=== PATIENT | female | born 1950 | race Two or more races ===

== ENCOUNTER 2019-11-22 09:40 | Outpatient (CLI) | payer MEDICARE, MEDICAID ==
[~2019-11-22] VITALS: Ht 162.6 cm; Wt 63.0 kg
[2019-11-22 14:59] VITALS: BP 100/59
[2019-11-22] MEDS ORDERED: SIMETHICONE180 MG PO (14:59)
[2019-11-22] MEDS ORDERED: FAMOTIDINE20 MG ORAL (14:59)
[2019-11-22] MEDS ORDERED: LEVSIN-SL0.125 MG SL (14:59)
[2019-11-22] MEDS ORDERED: HYOSCYAMINE0.125 M2 PO (14:59)
[2019-11-22] MEDS ORDERED: CARAFATE1 G1 ORAL (14:59)
--- NOTE | 2019-11-23 15:45 | Consultation ---
DATE OF CONSULTATION: 11/23/2019 CONSULTING PHYSICIAN: Italo Castaneda M.D. CHIEF COMPLAINT: Abdominal pain. HISTORY OF PRESENT ILLNESS: This is a very pleasant 68-year-old woman without any significant past medical history, complained of some abdominal pain, epigastric; chronic GERD; constipation; nausea; bloating, who was referred to us for evaluation of the abdominal pain, GERD, constipation, nausea, bloating. PAST MEDICAL HISTORY: 1. GERD. 2. History of colonic polyp. PAST SURGICAL HISTORY: Appendectomy. MEDICATIONS: Please see medication reconciliation list. FAMILY HISTORY: No family history of GI malignancies. SOCIAL HISTORY: The patient denies any tobacco, alcohol, or drug abuse. ALLERGIES: No known allergies. REVIEW OF SYSTEMS: A 10-point review of systems was performed and positive for epigastric abdominal pain, chronic GERD, chronic constipation, nausea, and bloating. PHYSICAL EXAMINATION: VITAL SIGNS: Temperature 97.8, blood pressure is 110/59, pulse is 77, respirations 20. HEENT: Normocephalic and atraumatic. Sclerae anicteric. NECK: Supple. No evidence of obvious lymphadenopathy. CARDIOVASCULAR: Regular rate and rhythm. Plus S1 and S2. LUNGS: Clear to auscultation bilaterally. ABDOMEN: Positive bowel sounds. Soft and nontender. No rebound. No guarding. No peritoneal sign. EXTREMITIES: No cyanosis, no clubbing, no edema ASSESSMENT AND PLAN: This is a 68-year-old female with epigastric abdominal pain, constipation, GERD, nausea, bloating. The patient needs endoscopy and colonoscopy for evaluation of those. Possibly needs a followup CT if the above studies are nondiagnostic. The patient also might have some component of SIBO given the gas, bloating, and abdominal distension. The patient also needs to be treated for chronic constipation. We will plan to do endoscopy and colonoscopy first and the patient to come back to office for followup for the rest of her symptoms. I want to thank, Dr. Rachel for this kind referral. Italo Castaneda M.D. DR: DHRUV JOB#: [id number] CC: Dr. Rachel
== END 2019-11-22 11:40 | disposition home or self-care (01) ==
LOC: PAN 09:40
DX: R10.9 Unspecified abdominal pain (principal); K21.9 Gastro-esophageal reflux disease without esophagitis; Z86.010 Personal history of colon polyps; Z90.89 Acquired absence of other organs; K59.09 Other constipation; R14.0 Abdominal distension (gaseous); R11.0 Nausea
CPT/HCPCS: G0463

== ENCOUNTER 2019-12-02 09:45 | Day surgery (SDC) | payer MEDICARE, MEDICAID ==
[2019-12-02] VITALS (9 sets, daily range): BP systolic 94–123; BP diastolic 45–69
[~2019-12-02] VITALS: Ht 162.6 cm; Wt 61.2 kg
[~2019-12-02 09:45] MED LIST: CARAFATE1 G1 ORAL; FAMOTIDINE20 MG ORAL; HYOSCYAMINE0.125 M2 PO; LEVSIN-SL0.125 MG SL; LR 1000ml 1,000 ML IVLG SCH; SIMETHICONE180 MG PO
[2019-12-02] MEDS ORDERED: Midazolam 2mg/2ml Inj ONE (09:46)
[2019-12-02] MEDS ORDERED: fentaNYL 100 mcg/2 mL IV ONE (09:46)
[2019-12-02] MEDS ORDERED: Propofol 200mg/20ml IV ONE (10:30)
[2019-12-02] MEDS ORDERED: LR 1000ml ONE (10:30)
--- NOTE | 2019-12-02 10:34 | Pre-Procedure Note/Attestation ---
Pre-Procedure Note/Attestation Complete Prior to Procedure Planned Procedure: not applicable Procedure Narrative: egd/colonoscopy Indications for Procedure Pre-Operative Diagnosis: GERD screening colon Attestation I attest that I discussed the nature of the procedure; its benefits; risks and complications; and alternatives (and the risks and benefits of such alternatives ), prior to the procedure, with the patient (or the patient's legal sales representative public [employer]). I attest that, if there was a reasonable possibility of needing a blood transfusion, the patient (or the patient's legal sales representative public [employer]) was given the [facility] standardized written summary, pursuant to the [place] Blood Safety Act ([place] Health and Safety Code # 1645, as amended). I attest that I re-evaluated the patient just prior to the surgery and that there has been no change in the patient's H&P, except as documented below: Italo Castaneda MD Dec 02, 2019 10:34
--- NOTE | 2019-12-02 10:34 | Short Stay Surgery H&P ---
History of Present Illness History of Present Illness Chief Complaint see recent office note HPI Jodie Recio is a 68 year old female who was admitted on for Abdominal Pain,Gerd,Constipation,Bloating Patient History Allergies: Coded Allergies: No Known Allergies (Unverified , 11/22/19) Medication History Scheduled Famotidine* (Pepcid 20mg tablet*), 20 MG ORAL TWICE A DAY, (Reported) Hyoscyamine Sulfate (Hyoscyamine Sulfate), 0.125 MG PO DAILY, (Reported) Hyoscyamine Sulfate* (Levsin-Sl*), 0.125 MG SL FOUR TIMES A DAY, (Reported) Simethicone (Simethicone), 180 MG PO BID, (Reported) Sucralfate* (Carafate*), 1 GM ORAL TID, (Reported) Plan Attestation Are the patient's medical conditions optimized for surgery? Italo Castaneda MD Dec 02, 2019 10:34
--- NOTE | 2019-12-02 11:01 | Anethesia Preoperative Eval ---
Anesthesia Pre-op PMH/ROS General Date of Evaluation: Dec 02, 2019 Time of Evaluation: 10:30 Anesthesiologist: Dong ASA Score: ASA 2 Mallampati Score Class I : Soft palate, uvula, fauces, pillars visible Class II: Soft palate, uvula, fauces visible Class III: Soft palate, base of uvula visible Class IV: Only hard plate visible Mallampati Classification: Class II Surgeon: Leonel Diagnosis: Abdominal pain Surgical Procedure: EGD Colonoscopy Anesthesia History: none Family History: no anesthesia problems Allergies: Coded Allergies: No Known Allergies (Unverified , 11/22/19) Medications: see eMAR Patient NPO?: Yes Past Medical History Cardiovascular: Denies: HTN, CAD, PR, valve dz, arrhythmia, other Pulmonary: Denies: asthma, COPD, YOUSUF, other Gastrointestinal/Genitourinary: Reports: GERD; Denies: CRI, ESRD, other Neurologic/Psychiatric: Reports: depression/anxiety; Denies: dementia, CVA, TIA, other Endocrine: Denies: DM, hypothyroidism, steroids, other HEENT: Denies: cataract (L), cataract (R), glaucoma, TABLE MOUNTAIN (L), TABLE MOUNTAIN (R), other Hematology/Immune: Denies: anemia, DVT, bleeding disorder, other Musculoskeletal/Integumentary: Reports: OA; Denies: RA, DJD, DDD, edema, other PMH Narrative: as above PSxH Narrative: Appendectomy hernia repair Anesthesia Pre-op Phys. Exam Physician Exam Last Vital Signs Date Time Temp Pulse Resp B/P (MAP) Pulse Ox O2 Delivery O2 Flow Rate FiO2 12/02/19 10:38 97.7 75 18 123/69 97 Room Air Constitutional: NAD Neurologic: CN 2-12 intact Cardiovascular: RRR, no M/R/G Respiratory: CTA Gastrointestinal: S/NT/ND Airway Exam Mallampati Score: Class II MO: full Neck: flexible ROM: full Teeth: missing Dentures: no upper, no lower Anesthesia Pre-op A/P Studies Pre-op Studies: EKG - NSR Risk Assessment & Plan Assessment: ASA 2 Plan: MAC Status Change Before Surgery: No Pre-Antibiotics Drug: none Harinder Umana MD Dec 02, 2019 11:01
--- NOTE | 2019-12-02 11:11 | Endoscopy Procedure Note ---
Endoscopy Procedure Note General Indication for Procedure: screening colon, gerd Procedures Performed: EGD, colonoscopy Operative Findings/Diagnosis: gastritis, hemorrhoids Specimen: yes Pt Tolerated Procedure Well: Yes Estimated Blood Loss: none Anesthesia Anesthesiologist: rachelle Anesthesia: MAC Inserted Devices Implant(s) used?: No Quality Quality of Bowel Preparation: Good Did scope reach the cecum?: Yes Was there any complications?: No GI Core Measures 50 yrs or older w/o bx or poly: No 10yrs. F/U recommended: Yes If not recommended, why?: Above average risk 18 years or older w/prev. colo: No Itaol Castaneda MD Dec 02, 2019 11:11
--- NOTE | 2019-12-02 11:14 | Immediate Post-Op Evaluation ---
Immediate Post-Op Evalulation Immediate Post-Op Evalulation Procedure: EGD Colonoscopy Date of Evaluation: Dec 02, 2019 Time of Evaluation: 11:13 IV Fluids: 600 Blood Products: none Estimated Blood Loss: none Urinary Output: none Blood Pressure Systolic: 102 Blood Pressure Diastolic: 56 Pulse Rate: 64 Respiratory Rate: 20 O2 Sat by Pulse Oximetry: 99 Temperature (Fahrenheit): 97.2 Pain Score (1-10): 1 Nausea: No Vomiting: No Complications none Patient Status: reacts, patent, none Hydration Status: adequate Harinder Uamna MD Dec 02, 2019 11:14
--- NOTE | 2019-12-02 12:06 | 48 Hour Post Anesthesia Eval ---
Post Anesthesia Evaluation Procedure: EGD Colonoscopy Date of Evaluation: Dec 02, 2019 Time of Evaluation: 12:05 Blood Pressure Systolic: 100 0: 53 Pulse Rate: 65 Respiratory Rate: 18 Temperature (Fahrenheit): 97.6 O2 Sat by Pulse Oximetry: 98 Airway: patent Nausea: No Vomiting: No Pain Intensity: 1 Hydration Status: adequate Cardiopulmonary Status: stable Mental Status/LOC: patient returned to baseline Follow-up Care/Observations: n/a Post-Anesthesia Complications: none Follow-up care needed: ready to discharge Harinder Umana MD Dec 02, 2019 12:06
--- NOTE | 2019-12-02 14:45 | Procedure Note ---
DATE OF PROCEDURE: 12/02/2019 SURGEON: Italo Castaneda M.D. PROCEDURE: Upper endoscopy with biopsy and colonoscopy. ANESTHESIA: Per Dr. Umana. INSTRUMENT: Olympus adult flexible upper endoscope and colonoscope. INDICATIONS: Screening colonoscopy evaluation, chronic GERD. REASON FOR PROCEDURE: The procedure, risks, benefits, and possible consequences, including hemorrhage, aspiration, perforation and infection, and alternative treatments, were explained to the patient/legal guardian by Dr. Italo Castaneda and the patient/legal guardian understood and accepted these risks. DESCRIPTION OF PROCEDURE: After informed consent was obtained and the patient was adequately sedated, Olympus upper endoscope was advanced from mouth into the second portion of the duodenum and retroflexion was performed in the stomach. The patient had diffuse gastritis. Random biopsy from antrum was obtained to rule out H. pylori infection. Also, the patient had 1 polyp in the upper body of the stomach close to the GE junction, which was removed with cold biopsy forceps technique. The rest of the examination was grossly within normal limits. At this time, the upper endoscope was retrieved. The patient was turned over for colonoscopy. First rectal exam was performed, which was positive for internal hemorrhoids. Then, the scope was advanced from the rectum into the cecum then subsequently to terminal ileum. Quality of prep was very good. The patient had normal colonoscopy examination. No obvious mass, polyp, or any pathology was seen. Retroflexion of rectum showed evidence of internal hemorrhoids. SUMMARY OF FINDINGS: 1. Gastritis, status post biopsy. 2. One gastric polyp removed with cold biopsy forceps technique. 3. Internal hemorrhoids. RECOMMENDATIONS: Follow up biopsy results and treat accordingly. Italo Castaneda M.D. DR: CANDY JOB#: [id number] CC:
== END 2019-12-02 12:40 | disposition home or self-care (01) ==
LOC: GAS 09:45
DX: Z12.11 Encounter for screening for malignant neoplasm of colon (principal); K29.50 Unspecified chronic gastritis without bleeding; K21.9 Gastro-esophageal reflux disease without esophagitis; K63.5 Polyp of colon; K64.8 Other hemorrhoids; F32.9 Major depressive disorder, single episode, unspecified; F41.9 Anxiety disorder, unspecified; M19.90 Unspecified osteoarthritis, unspecified site; Z90.89 Acquired absence of other organs
CPT/HCPCS: 43239; 93005; G0121; J2250; J2704; J3010; J7120; 94003; 94150